=== PATIENT | female | born 1945 | race Two or more races ===

== ENCOUNTER 2016-10-25 14:59 | Emergency (ER) | payer MEDICARE, OTHER ==
[~2016-10-25] VITALS: Ht 162.6 cm; Wt 81.6 kg
[~2016-10-25 14:59] MED LIST: AMOX1TAB61 PO; CARV25TA2 PO; ESTR1TAB15 PO; OLME1TAB35 PO; OMEP40CA5 PO
[2016-10-25 15:40] LABS: BASO # 0.1 x10^3/uL (0.0-0.2); BASO % 1 % (0-3); EOS % 3 % (0-3); HEMATOCRIT 41.1 % (36.0-47.0); HEMOGLOBIN 13.9 g/dL (12.0-15.5); LYMPH # 2.8 x10^3/uL (1.0-4.8); LYMPH % 39 % (24-48); MEAN CORPUSCULAR HEMOGLOBIN 31 pg (25-35); MEAN CORPUSCULAR HGB CONC 34 g/dL (31-37); MEAN CORPUSCULAR VOLUME 91 fL (79-100); MONO % 11 % (0-9); NEUT % 46 % (31-73); PLATELET COUNT 188 x10^3/uL (140-400); RED BLOOD COUNT 4.52 x10^6/uL (3.50-5.40); RED CELL DISTRIBUTION WIDTH 13.6 % (11.5-14.5); WHITE BLOOD COUNT 7.2 x10^3/uL (4.0-11.0)
[2016-10-25 15:43] LABS: BILIRUBIN,URINE NEGATIVE (NEG); GLUCOSE,URINE NEGATIVE (NEG); NITRITE,URINE NEGATIVE (NEG); PH,URINE 5.5; PROTEIN,URINE NEGATIVE (NEG-TRACE); UROBILINOGEN,URINE 0.2 mg/dL (0.2 mg/dL)
[2016-10-25] MEDS ORDERED: KETOROLAC TROMETHAMINE 30 MG/ML INJ. IV ONE (15:45)
[2016-10-25 15:50] LABS: BACTERIA,URINE MANY /HPF (0-FEW); SQUAMOUS EPITHELIAL CELL,UR MOD /LPF
[2016-10-25 16:32] LABS: CALCIUM 8.5 mg/dL (8.5-10.1); CREATININE 0.8 mg/dL (0.6-1.0); GFR 70.9; POTASSIUM 3.4 mmol/L (3.5-5.1)
[2016-10-25 16:38] LABS: ALBUMIN 3.6 g/dL (3.4-5.0); DIRECT BILIRUBIN 0.1 mg/dL (0.0-0.2); TOTAL BILIRUBIN 0.3 mg/dL (0.2-1.0); TOTAL PROTEIN 7.5 g/dL (6.4-8.2)
[2016-10-25 16:47] VITALS: BP 149/70
--- NOTE | 2016-10-25 16:55 | PHYS DOC ---
Past Medical History Past Medical History: Diabetes-Type II, High Cholesterol, Hypertension Past Surgical History: Hysterectomy, Tonsillectomy Alcohol Use: None Drug Use: None Adult General Chief Complaint Chief Complaint: ABDOMINAL PAIN HPI HPI Patient is a 71 year old female who presents with right lower quadrant abdominal pain associated with intermittent diarrhea over the past 3 days. She was seen by her primary care doctor's office and sent here for evaluation. She notes constant, mild to moderate, achy pain in her right lower abdominal area that has been nonradiating and nonmigratory. Only one episode of diarrhea today. No recent travel or antibiotics. She denies fever or chills, nausea or vomiting, decreased appetite, dysuria, hematuria, bloody or dark stools, constipation. Review of Systems Review of Systems Constitutional: Denies fever or chills [] Eyes: Denies change in visual acuity, redness, or eye pain [] HENT: Denies nasal congestion or sore throat [] Respiratory: Denies cough or shortness of breath [] Cardiovascular: No additional information not addressed in HPI [] GI: Denies nausea, vomiting, bloody stools [] : Denies dysuria or hematuria [] Musculoskeletal: Denies back pain or joint pain [] Integument: Denies rash or skin lesions [] Neurologic: Denies headache, focal weakness or sensory changes [] Endocrine: Denies polyuria or polydipsia [] Current Medications Current Medications Current Medications Medications (Trade) Dose Ordered Sig/[facility] Start Time Stop Time Status Last Admin Dose Admin Ketorolac Tromethamine (Toradol) 10 mg 1X ONCE 10/25/16 15:45 10/25/16 15:46 DC 10/25/16 15:38 10 MG Allergies Allergies Allergies Coded Allergies Type Severity Reaction Last Updated Verified No Known Drug Allergies 02/25/15 No Physical Exam Physical Exam Constitutional: Well developed, well nourished, no acute distress, non-toxic appearance. [] HENT: Normocephalic, atraumatic, bilateral external ears normal, oropharynx moist, nose normal. [] Eyes: PERRLA, EOMI. [] Neck: Normal range of motion, supple. [] Cardiovascular:Heart rate regular rhythm [] Lungs & Thorax: Bilateral breath sounds clear to auscultation [] Abdomen: Bowel sounds normal, soft, minimal right lower quadrant tenderness, no guarding or rebound. [] Skin: Warm, dry, no erythema, no rash. [] Back: No tenderness, no CVA tenderness. [] Extremities: No tenderness, ROM intact, no edema. [] Neurologic: Alert and oriented X 3, normal motor function, normal sensory function, no focal deficits noted. [] Psychologic: Affect normal, judgement normal, mood normal. [] Current Patient Data Vital Signs Vital Signs Date Time Temp Pulse Resp B/P (MAP) Pulse Ox O2 Delivery O2 Flow Rate FiO2 10/25/16 16:47 60 149/70 (96) 10/25/16 16:17 16 Room Air 10/25/16 15:17 96 10/25/16 15:10 98.1 98.1 Lab Values Laboratory Tests Test 10/25/16 15:10 10/25/16 15:30 Urine Collection Type Unknown Urine Color Yellow Urine Clarity Clear Urine pH 5.5 Urine Specific [place] >=1.030 Urine Protein Negative mg/dL (NEG-TRACE) Urine Glucose (UA) Negative mg/dL (NEG) Urine Ketones (Stick) Trace mg/dL (NEG) Urine Blood Trace (NEG) Urine Nitrite Negative (NEG) Urine Bilirubin Negative (NEG) Urine Urobilinogen Dipstick 0.2 mg/dL (0.2 mg/dL) Urine Leukocyte Esterase Negative (NEG) Urine RBC 1-2 /HPF (0-2) Urine WBC 1-4 /HPF (0-4) Urine Squamous Epithelial Cells Mod /LPF Urine Bacteria Many /HPF (0-FEW) Urine Mucus Marked /LPF White Blood Count 7.2 x10^3/uL (4.0-11.0) Red Blood Count 4.52 x10^6/uL (3.50-5.40) Hemoglobin 13.9 g/dL (12.0-15.5) Hematocrit 41.1 % (36.0-47.0) Mean Corpuscular Volume 91 fL (79-100) Mean Corpuscular Hemoglobin 31 pg (25-35) Mean Corpuscular Hemoglobin Concent 34 g/dL (31-37) Red Cell Distribution Width 13.6 % (11.5-14.5) Platelet Count 188 x10^3/uL (140-400) Neutrophils (%) (Auto) 46 % (31-73) Lymphocytes (%) (Auto) 39 % (24-48) Monocytes (%) (Auto) 11 % (0-9) H Eosinophils (%) (Auto) 3 % (0-3) Basophils (%) (Auto) 1 % (0-3) Neutrophils # (Auto) 3.3 x10^3uL (1.8-7.7) Lymphocytes # (Auto) 2.8 x10^3/uL (1.0-4.8) Monocytes # (Auto) 0.8 x10^3/uL (0.0-1.1) Eosinophils # (Auto) 0.2 x10^3/uL (0.0-0.7) Basophils # (Auto) 0.1 x10^3/uL (0.0-0.2) Sodium Level 140 mmol/L (136-145) Potassium Level 3.4 mmol/L (3.5-5.1) L Chloride Level 103 mmol/L (98-107) Carbon Dioxide Level 28 mmol/L (21-32) Anion Gap 9 (6-14) Blood Urea Nitrogen 22 mg/dL (7-20) H Creatinine 0.8 mg/dL (0.6-1.0) Estimated GFR (Cockcroft-Gault) 70.9 Glucose Level 93 mg/dL (70-99) Calcium Level 8.5 mg/dL (8.5-10.1) Total Bilirubin 0.3 mg/dL (0.2-1.0) Direct Bilirubin 0.1 mg/dL (0.0-0.2) Aspartate Amino Transferase (AST) 21 U/L (15-37) Alanine Aminotransferase (ALT) 54 U/L (14-59) Alkaline Phosphatase 45 U/L (46-116) L Total Protein 7.5 g/dL (6.4-8.2) Albumin 3.6 g/dL (3.4-5.0) Lipase 185 U/L (73-393) Laboratory Tests 10/25/16 15:30 Laboratory Tests 10/25/16 15:30 Course & Med Decision Making Course & Med Decision Making Pertinent Labs and Imaging studies reviewed. (See chart for details) Laboratory evaluation is unremarkable. Discussed symptomatic care. Return precautions given. She understands and agrees plan. Dragon Disclaimer Dragon Disclaimer This electronic medical record was generated, in whole or in part, using a voice recognition dictation system. Departure Departure Impression: Primary Impression: Right lower quadrant abdominal pain Disposition: 01 HOME, SELF-CARE Condition: STABLE Referrals: NORY CAPPS MD (PCP) Patient Instructions: Abdominal Pain, [id number] Additional Instructions: Take Tylenol or ibuprofen as needed for pain. Drink liquids to stay hydrated. Follow-up with your primary care doctor. Return for any concerns. Anette HAMILTON MD October 25, 2016 16:55
== END 2016-10-25 17:04 | disposition home or self-care (01) ==
LOC: ER 14:59
DX: R10.31 Right lower quadrant pain (principal); R19.7 Diarrhea, unspecified; E11.9 Type 2 diabetes mellitus without complications; E78.00 Pure hypercholesterolemia, unspecified; I10 Essential (primary) hypertension; Z90.710 Acquired absence of both cervix and uterus
CPT/HCPCS: 36415; 80048; 80076; 81001; 83690; 85027; 87086; 96374; 99284; J1885

== ENCOUNTER → 2017-10-25 | Outpatient (CLI) | payer OTHER | END | disposition home or self-care (01) | LOC: MAMMO 08:39 | DX: Z12.31 Encounter for screening mammogram for malignant neoplasm of breast (principal); K76.0 Fatty (change of) liver, not elsewhere classified; N28.1 Cyst of kidney, acquired; R16.0 Hepatomegaly, not elsewhere classified | CPT/HCPCS: 76700; 77063; 77067 ==

== ENCOUNTER → 2017-11-06 | Outpatient (CLI) | payer OTHER | END | disposition home or self-care (01) | LOC: US 08:54 | DX: N63.12 Unspecified lump in the right breast, upper inner quadrant (principal); N63.21 Unspecified lump in the left breast, upper outer quadrant | CPT/HCPCS: 76641 ==

== ENCOUNTER → 2017-11-24 | Day surgery (SDC) | payer OTHER ==
[~2017-11-24] MED LIST changes: -AMOX1TAB61 PO; -CARV25TA2 PO; -ESTR1TAB15 PO; +LIDOCAINE 2% PF Vial for OR 5 ML VIAL.; +LIDOCAINE 2%/EPI 1:100,000 20 ML VIAL. IJ; +LIDOCAINE WITH 8.4% SOD BICARB 3 ML DISP.SYRIN. INJ; -OLME1TAB35 PO; -OMEP40CA5 PO; +PROPOFOL 20 ML IV
[2017-11-24] MEDS: IV RINGERS,LACTATED 1000ML 1,000 ML IV (06:36)
== END | disposition home or self-care (01) ==
LOC: SURG 05:49
DX: K29.50 Unspecified chronic gastritis without bleeding (principal); M19.90 Unspecified osteoarthritis, unspecified site; K21.9 Gastro-esophageal reflux disease without esophagitis; I10 Essential (primary) hypertension; Z79.899 Other long term (current) drug therapy; Z90.710 Acquired absence of both cervix and uterus; Z98.890 Other specified postprocedural states
CPT/HCPCS: 19081; 43235; 76942; C1713; J2001; J2704; J3490

== ENCOUNTER → 2017-11-24 | Outpatient (CLI) | payer OTHER ==
[~2017-11-24] MED LIST changes: -LIDOCAINE 2% PF Vial for OR 5 ML VIAL.; +LIDOCAINE 2%/EPI 1:100,000 20 ML VIAL.; +LIDOCAINE WITH 8.4% SOD BICARB 3 ML DISP.SYRIN.; -PROPOFOL 20 ML IV
== END | disposition home or self-care (01) ==
LOC: MAMMO 11:54
DX: D24.1 Benign neoplasm of right breast (principal); N60.31 Fibrosclerosis of right breast; N60.41 Mammary duct ectasia of right breast; N60.82 Other benign mammary dysplasias of left breast; N60.81 Other benign mammary dysplasias of right breast; N60.42 Mammary duct ectasia of left breast; N60.32 Fibrosclerosis of left breast; I10 Essential (primary) hypertension; K21.9 Gastro-esophageal reflux disease without esophagitis; Z90.710 Acquired absence of both cervix and uterus; Z98.890 Other specified postprocedural states; M19.90 Unspecified osteoarthritis, unspecified site
CPT/HCPCS: 19081; 19083; 76942; 77066; 88305; C1713

== ENCOUNTER 2018-01-11 10:21 | Emergency (ER) | payer OTHER ==
[~2018-01-11] VITALS: Ht 162.6 cm; Wt 83.0 kg
[~2018-01-11 10:21] MED LIST changes: +AMOX1TAB61 PO; +CARV25TA2 PO; +ESTR1TAB15 PO; +HYDR-2869 PO; -LIDOCAINE 2%/EPI 1:100,000 20 ML VIAL.; -LIDOCAINE 2%/EPI 1:100,000 20 ML VIAL. IJ; -LIDOCAINE WITH 8.4% SOD BICARB 3 ML DISP.SYRIN.; -LIDOCAINE WITH 8.4% SOD BICARB 3 ML DISP.SYRIN. INJ; +OLME1TAB35 PO; +OMEP40CA5 PO; +PANT20TA2 PO
[2018-01-11] MEDS ORDERED: ACETAMINOPHEN 500 MG TABLET PO ONE (10:45)
[2018-01-11] MEDS ORDERED: IV NORMAL SALINE 1000ML BAG 1,000 ML IV ONE (10:45)
--- NOTE | 2018-01-11 10:52 | PHYS DOC ---
Past Medical History Past Medical History: Diabetes-Type II, High Cholesterol, Hypertension Past Surgical History: Hysterectomy, Tonsillectomy Alcohol Use: None Drug Use: None Adult General Chief Complaint Chief Complaint: HYPERTENSION HPI HPI Patient is a 72 year old female with history of diabetes type 2, hypertension, high cholesterol, who presents today to be evaluated for high blood pressure. Patient just came from the doctor's office and states her systolic blood pressure was 220 and she was dizzy and was sent to the emergency room. Patient denies any chest pain. Denies any shortness of breath. PCP Dr. Perkins System Support Specialist line was used for [place] Review of Systems Review of Systems Constitutional: Denies fever or chills [] Eyes: Denies change in visual acuity, redness, or eye pain [] HENT: Denies nasal congestion or sore throat [] Respiratory: Denies cough or shortness of breath [] Cardiovascular: Reports high blood pressure. No additional information not addressed in HPI [] GI: Denies abdominal pain, nausea, vomiting, bloody stools or diarrhea [] : Denies dysuria or hematuria [] Musculoskeletal: Denies back pain or joint pain [] Integument: Denies rash or skin lesions [] Neurologic: Reports dizziness. Denies headache, focal weakness or sensory changes [] All other systems were reviewed and found to be within normal limits, except as documented in this note. Current Medications Current Medications Current Medications Medications (Trade) Dose Ordered Sig/Margie Start Time Stop Time Status Last Admin Dose Admin Acetaminophen (Tylenol) 1,000 mg 1X ONCE 01/11/18 10:45 01/11/18 10:48 DC 01/11/18 11:30 1,000 MG Potassium Chloride (Klor-Con) 40 meq 1X ONCE 01/11/18 11:45 01/11/18 11:46 DC 01/11/18 11:50 40 MEQ Sodium Chloride 1,000 ml @ 1,000 mls/hr 1X ONCE 01/11/18 10:45 01/11/18 11:44 DC 01/11/18 11:31 1,000 MLS/HR Allergies Allergies Allergies Coded Allergies Type Severity Reaction Last Updated Verified No Known Drug Allergies 11/24/17 No Physical Exam Physical Exam Constitutional: Well developed, well nourished, no acute distress, non-toxic appearance. [] HENT: Normocephalic, atraumatic, bilateral external ears normal, oropharynx moist, no oral exudates, nose normal. [] Eyes: PERRLA, EOMI, conjunctiva normal, no discharge. [] Neck: Normal range of motion, no tenderness, supple, no stridor. [] Cardiovascular:Heart rate regular rhythm, no murmur [] Lungs & Thorax: Bilateral breath sounds clear to auscultation [] Abdomen: Bowel sounds normal, soft, no tenderness, no masses, no pulsatile masses. [] Skin: Warm, dry, no erythema, no rash. [] Back: No tenderness, no CVA tenderness. [] Extremities: No tenderness, no cyanosis, no clubbing, ROM intact, no edema. [] Neurologic: Alert and oriented X 3, normal motor function, normal sensory function, no focal deficits noted. [] Psychologic: Affect normal, judgement normal, mood normal. [] Current Patient Data Vital Signs Vital Signs Date Time Temp Pulse Resp B/P (MAP) Pulse Ox O2 Delivery O2 Flow Rate FiO2 01/11/18 11:34 56 12 95 01/11/18 10:27 98.6 175/75 (108) Room Air 98.6 Lab Values Laboratory Tests Test 01/11/18 11:00 White Blood Count 5.6 x10^3/uL (4.0-11.0) Red Blood Count 4.63 x10^6/uL (3.50-5.40) Hemoglobin 14.3 g/dL (12.0-15.5) Hematocrit 41.5 % (36.0-47.0) Mean Corpuscular Volume 90 fL (79-100) Mean Corpuscular Hemoglobin 31 pg (25-35) Mean Corpuscular Hemoglobin Concent 34 g/dL (31-37) Red Cell Distribution Width 12.8 % (11.5-14.5) Platelet Count 167 x10^3/uL (140-400) Neutrophils (%) (Auto) 56 % (31-73) Lymphocytes (%) (Auto) 33 % (24-48) Monocytes (%) (Auto) 9 % (0-9) Eosinophils (%) (Auto) 2 % (0-3) Basophils (%) (Auto) 1 % (0-3) Neutrophils # (Auto) 3.1 x10^3uL (1.8-7.7) Lymphocytes # (Auto) 1.8 x10^3/uL (1.0-4.8) Monocytes # (Auto) 0.5 x10^3/uL (0.0-1.1) Eosinophils # (Auto) 0.1 x10^3/uL (0.0-0.7) Basophils # (Auto) 0.1 x10^3/uL (0.0-0.2) Urine Collection Type Unknown Urine Color Yellow Urine Clarity Clear Urine pH 6.5 Urine Specific [place] 1.015 Urine Protein Negative mg/dL (NEG-TRACE) Urine Glucose (UA) Negative mg/dL (NEG) Urine Ketones (Stick) Negative mg/dL (NEG) Urine Blood Negative (NEG) Urine Nitrite Negative (NEG) Urine Bilirubin Negative (NEG) Urine Urobilinogen Dipstick 1.0 mg/dL (0.2 mg/dL) Urine Leukocyte Esterase Negative (NEG) Urine RBC Occ /HPF (0-2) Urine WBC 1-4 /HPF (0-4) Urine Squamous Epithelial Cells Mod /LPF Urine Bacteria Many /HPF (0-FEW) Urine Mucus Slight /LPF Sodium Level 139 mmol/L (136-145) Potassium Level 3.3 mmol/L (3.5-5.1) L Chloride Level 105 mmol/L (98-107) Carbon Dioxide Level 30 mmol/L (21-32) Anion Gap 4 (6-14) L Blood Urea Nitrogen 16 mg/dL (7-20) Creatinine 0.8 mg/dL (0.6-1.0) Estimated GFR (Cockcroft-Gault) 70.7 Glucose Level 206 mg/dL (70-99) H Calcium Level 8.5 mg/dL (8.5-10.1) Creatine Kinase 65 U/L (26-192) Creatine Kinase MB (Mass) 0.9 ng/mL (0.0-3.6) Creatine Kinase MB Relative Index % (0-4) Troponin I Quantitative < 0.017 ng/mL (0.000-0.055) Urine Opiates Screen Neg (NEG) Urine Methadone Screen Neg (NEG) Urine Barbiturates Neg (NEG) Urine Phencyclidine Screen Neg (NEG) Urine Amphetamine/Methamphetamine Neg (NEG) Urine Benzodiazepines Screen Neg (NEG) Urine Cocaine Screen Neg (NEG) Urine Cannabinoids Screen Neg (NEG) Ethyl Alcohol Level < 10 mg/dL (0-10) Urine Ethyl Alcohol Neg (NEG) Laboratory Tests 01/11/18 11:00 Laboratory Tests 01/11/18 11:00 EKG EKG 11:[address] Parmar sinus rhythm, inverteed T waves noted on V1, V2 and V 3 similar to EKG in 2015 no STEMI[] Radiology/Procedures Radiology/Procedures []PROCEDURE: CHEST AP ONLY CHEST AP ONLY History: dizziness. Comparison: None. Heart size: Mildly enlarged Gloria/mediastinum: Aorta mildly tortuous, stable. Lungs: No focal airspace consolidation. Pleura: No evidence of pleural effusion. Pneumothorax: None visualized Bones: Regional skeleton appears grossly intact. Miscellaneous: None Impression: Cardiac silhouette appears mildly enlarged. No evidence of focal infiltrate. Electronically signed by: Leo Pineda MD (01/11/2018 11:20 AM) [facility] DICTATED and SIGNED BY: LEO PINEDA MD DATE: 01/11/18 1118 Course & Med Decision Making Course & Med Decision Making Pertinent Labs and Imaging studies reviewed. (See chart for details) This is a 72-year-old female patient presenting today from the doctor's office stating her blood pressure was checked it was 220 systolic. Patient has history of high blood pressure. She states she had taken her blood pressure medicines including hydralazine Coreg and losartan/HCTZ prior to going to the doctor's office. She was complaining of dizziness at the doctor's office, they sent her to the ED to be evaluated. Patient's blood pressure on arrival was 175/75. Patient's lab work EKG and chest x-rays are negative for any acute findings. Patient was monitored in the edition is also given Tylenol and IV fluids. Currently she states she feels better. Her blood glucose was elevated 206 with normal anion gap. She states she has history of diabetes, on metformin. BP was 172/71 will be discharged to home. F/u with PCP in 1 week. Dragon Disclaimer Dragon Disclaimer This electronic medical record was generated, in whole or in part, using a voice recognition dictation system. Departure Departure Impression: Primary Impression: Hypertension Additional Impression: Hyperglycemia Disposition: HOME, SELF-CARE Condition: STABLE Referrals: LEO PERKINS MD (PCP) follow up in one week Patient Instructions: 1800 Calorie Diet for Diabetes Meal Planning, Diabetes and Exercise-SportsMed, Hypertension Additional Instructions: You were evaluated in the emergency room for high blood pressure, continue taking your blood pressure medications and diabetes medicine. Follow-up with your own doctor in the next 1 week. Problem Qualifiers Primary Impression: Hypertension Hypertension type: unspecified Qualified Codes: I10 - Essential (primary) hypertension CLAIRE PRECIADO APRN Jan 11, 2018 10:52
[2018-01-11 11:08] LABS: BASO # 0.1 x10^3/uL (0.0-0.2); BASO % 1 % (0-3); EOS # 0.1 x10^3/uL (0.0-0.7); EOS % 2 % (0-3); HEMATOCRIT 41.5 % (36.0-47.0); HEMOGLOBIN 14.3 g/dL (12.0-15.5); LYMPH # 1.8 x10^3/uL (1.0-4.8); LYMPH % 33 % (24-48); MEAN CORPUSCULAR HEMOGLOBIN 31 pg (25-35); MEAN CORPUSCULAR HGB CONC 34 g/dL (31-37); MEAN CORPUSCULAR VOLUME 90 fL (79-100); MONO # 0.5 x10^3/uL (0.0-1.1); MONO % 9 % (0-9); NEUT # 3.1 x10^3uL (1.8-7.7); NEUT % 56 % (31-73); PLATELET COUNT 167 x10^3/uL (140-400); RED BLOOD COUNT 4.63 x10^6/uL (3.50-5.40); RED CELL DISTRIBUTION WIDTH 12.8 % (11.5-14.5); WHITE BLOOD COUNT 5.6 x10^3/uL (4.0-11.0)
[2018-01-11 11:16] LABS: BARBITURATES NEG (NEG); BENZODIAZEPINES NEG (NEG); CALCIUM 8.5 mg/dL (8.5-10.1); CANNABINOIDS NEG (NEG); COCAINE NEG (NEG); CREATININE 0.8 mg/dL (0.6-1.0); GFR 70.7; METHADONE NEG (NEG); OPIATES NEG (NEG); PHENCYCLIDINE NEG (NEG); POTASSIUM 3.3 mmol/L (3.5-5.1)
[2018-01-11 11:21] LABS: AMPHETAMINE/METHAMPHETAMINE NEG (NEG); BILIRUBIN,URINE NEGATIVE (NEG); CLARITY,URINE CLEAR; COLOR,URINE YELLOW; NITRITE,URINE NEGATIVE (NEG); PH,URINE 6.5; PROTEIN,URINE NEGATIVE (NEG-TRACE)
--- NOTE | 2018-01-11 11:24 | RAD ---
CHEST AP ONLY History: dizziness. Comparison: None. Heart size: Mildly enlarged Gloria/mediastinum: Aorta mildly tortuous, stable. Lungs: No focal airspace consolidation. Pleura: No evidence of pleural effusion. Pneumothorax: None visualized Bones: Regional skeleton appears grossly intact. Miscellaneous: None Impression: Cardiac silhouette appears mildly enlarged. No evidence of focal infiltrate. Electronically signed by: Leo Pineda MD (01/11/2018 11:20 AM) [facility] [place]
[2018-01-11 11:34] LABS: CREATINE KINASE 65 U/L (26-192)
[2018-01-11 11:40] LABS: BACTERIA,URINE MANY /HPF (0-FEW); RBC,URINE OCC /HPF (0-2); SQUAMOUS EPITHELIAL CELL,UR MOD /LPF
[2018-01-11] MEDS ORDERED: POTASSIUM CHLORIDE 20 MEQ TABLET.ER. PO ONE (11:45)
--- NOTE | 2018-01-11 12:14 | EKG ---
[facility] [address] [place] [address] Test Date: 2018-01-11 Test Time: 11:00:42 Pat Name: LISANDRA REDDY Department: Room: Gender: F Social Psychologist: LARS : 1945 Requested By: CLAIRE PRECIADO Order Number: [id number] Reading MD: Rizwan Chen MD Measurements Intervals [place] Rate: 63 P: 32 DC: 184 QRS: 0 QRSD: 84 T: 48 QT: 426 QTc: 439 Interpretive Statements SINUS RHYTHM CONSISTENT WITH INFERIOR INFARCT PROBABLY OLD ABNORMAL ECG Electronically Signed On 01-11-2018 15:11:33 CDT by Rziwan Chen MD
[2018-01-11 12:38] VITALS: BP 195/79
== END 2018-01-11 13:02 | disposition home or self-care (01) ==
LOC: ER 10:21
DX: E11.65 Type 2 diabetes mellitus with hyperglycemia (principal); I10 Essential (primary) hypertension; E78.00 Pure hypercholesterolemia, unspecified; R42 Dizziness and giddiness
CPT/HCPCS: 36415; 71045; 80048; 80307; 81001; 82553; 84484; 85025; 87086; 93005; 96360; 96361; 99285; G0480; J7030; G0479

== ENCOUNTER → 2021-02-16 | Outpatient (CLI) | payer MEDICARE ==
[~2021-02-16] MED LIST changes: +ESTR-113 PO; -ESTR1TAB15 PO; -OMEP40CA5 PO; +OMEP40CA7 PO
--- NOTE | 2021-02-16 17:49 | KCIC ---
XR CHEST 2V History: 51, chest pain, GERD Comparison: 01/11/2018 Technique: PA and lateral chest radiographs. Findings: The lungs are adequately and symmectrically inflated. No airspace consolidation, pleural effusion or pneumothorax. The cardiomediastinal silhoutte and pulmonary vasculature are within normal limits. Mil d degenerative changes of the spine. Calcification aortic arch. Soft tissues are unremarkable. Impression: 1. No acute cardiopulmonary process. Electronically signed by: Brandon Hernandez MD (02/16/2021 5:46 PM) [id number]
== END ==
LOC: KCIC 09:17
DX: R07.89 Other chest pain (principal); E78.2 Mixed hyperlipidemia; K21.9 Gastro-esophageal reflux disease without esophagitis; R53.83 Other fatigue; I70.0 Atherosclerosis of aorta
CPT/HCPCS: 71046